=== PATIENT | male | born 1980 | race Asian ===

== ENCOUNTER 2016-08-23 00:53 | Emergency (ER) | payer OTHER, MEDICAID ==
[~2016-08-23] VITALS: Ht 172.7 cm; Wt 86.4 kg
[~2016-08-23 00:53] MED LIST: ALBU8.5H IH
[2016-08-23 01:21] LABS: BASOPHILS # (AUTO) 0.03 K/uL (0.00-0.20); BASOPHILS % (AUTO) 0.3 % (0.0-2.0); EOSINOPHILS # (AUTO) 0.55 K/uL (0.00-0.70); EOSINOPHILS % (AUTO) 4.96 % (1.0-6.0); HEMATOCRIT 48.5 % (41-53); HEMOGLOBIN 16.7 g/dL (13.5-17.5); LYMPHOCYTES # (AUTO) 2.6 K/uL (1.0-4.8); LYMPHOCYTES % (AUTO) 23.5 % (22.0-44.0); MEAN CORPUSCULAR HGB CONC 34.4 G/dL (31.0-37.0); MEAN CORPUSCULAR VOLUME 90 fL (80-100); MONOCYTES # (AUTO) 0.6 K/uL (0.1-1.0); MONOCYTES % (AUTO) 5.6 % (2.0-9.0); NEUTROPHILS # (AUTO) 7.3 K/uL (1.8-7.7); NEUTROPHILS % (AUTO) 65.7 % (40.0-70.0); PLATELET COUNT (AUTO) 257 K/uL (150-450); RED BLOOD CELL COUNT(AUTO) 5.38 MIL/uL (4.50-5.90); RED CELL DISTRIBUTION WIDTH 13.5 % (11.5-14.5); WHITE BLOOD COUNT (AUTO) 11.1 K/uL (4.5-11.0)
[2016-08-23 01:35] LABS: ANION GAP 3 mmol/L (8-16); CALCIUM, TOTAL 8.8 mg/dL (8.8-10.5); CARBON DIOXIDE 32 mmol/L (22-29); CHLORIDE 102 mmol/L (98-107); CREATININE 1.13 mg/dL (0.60-1.30); GLOMERULAR FILTR. RATE CALC > 60 mL/min (>60); POTASSIUM 4.3 mmol/L (3.5-5.1); SODIUM SERUM 137 mmol/L (136-145); UREA NITROGEN, BLOOD 14 mg/dL (7-18)
[2016-08-23 01:40] LABS: PROTHROMBIN TIME 10.6 SEC (9.4-11.6)
[2016-08-23 01:59] LABS: ALANINE AMINOTRANSFERASE 30 U/L (12-78); ALBUMIN 3.7 g/dL (3.4-5.0); ASPARTATE AMINOTRANSFERASE 18 U/L (15-37); BILIRUBIN,TOTAL 0.4 mg/dL (0.1-1.0); CREATINE KINASE MB 1.4 ng/mL (0-5); CREATINE KINASE, TOTAL 254 U/L (39-308); TOTAL PROTEIN, SERUM 7.7 g/dL (6.4-8.2)
[2016-08-23 03:07] LABS: APPEARANCE,URINE CLEAR (CLEAR); GLUCOSE, URINE (UA) 500 mg/dL (NEGATIVE); KETONES,URINE NEGATIVE (NEGATIVE); LEUKOCYTE ESTERASE ,URINE SMALL (NEGATIVE); OCCULT BLOOD,URINE SMALL (NEGATIVE); PH,URINE 5.5 (5.0-8.0); PROTEIN,URINE NEGATIVE (NEGATIVE)
[2016-08-23 03:11] LABS: ADD UA MICROSCOPIC YES
[2016-08-23 03:18] LABS: SQUAMOUS EPITHELIAL CELL,UR Few /LPF (None Seen)
[2016-08-23] MEDS: NAPROXEN 250 MG TABLET PO ONE (03:55)
[2016-08-23 04:02] VITALS: BP 124/89
== END 2016-08-23 04:03 | disposition home or self-care (01) ==
LOC: EMS 00:54
DX: R07.81 Pleurodynia (principal); J45.909 Unspecified asthma, uncomplicated; F17.210 Nicotine dependence, cigarettes, uncomplicated
CPT/HCPCS: 87086; 93005; 99285

== ENCOUNTER 2017-10-04 23:18 | Emergency (ER) | payer OTHER ==
[~2017-10-04] VITALS: Ht 172.7 cm; Wt 100.0 kg
[~2017-10-04 23:18] MED LIST changes: -ALBU8.5H IH; +ALBU8.5H8 IH
[2017-10-04 23:50] LABS: BASOPHILS % (AUTO) 0.6 % (0.0-2.0); EOSINOPHILS % (AUTO) 3.7 % (1.0-6.0); HEMATOCRIT 50.2 % (41-53); HEMOGLOBIN 17.1 g/dL (13.5-17.5); LYMPHOCYTES % (AUTO) 22.2 % (22.0-44.0); MEAN CORPUSCULAR HEMOGLOBIN 30.9 pg (26.0-34.0); MEAN CORPUSCULAR HGB CONC 34.1 G/dL (31.0-37.0); MEAN CORPUSCULAR VOLUME 91 fL (80-100); MONOCYTES # (AUTO) 0.7 K/uL (0.1-1.0); MONOCYTES % (AUTO) 7.6 % (2.0-9.0); NEUTROPHILS # (AUTO) 6.1 K/uL (1.8-7.7); NEUTROPHILS % (AUTO) 65.9 % (40.0-70.0); PLATELET COUNT (AUTO) 255 K/uL (150-450); RED BLOOD CELL COUNT(AUTO) 5.54 MIL/uL (4.50-5.90); RED CELL DISTRIBUTION WIDTH 13.8 % (11.5-14.5)
[2017-10-05] LABS: ANION GAP 6 mmol/L (8-16); CARBON DIOXIDE 27 mmol/L (22-29); CHLORIDE 102 mmol/L (98-107); CREATININE 0.99 mg/dL (0.60-1.30); GLOMERULAR FILTR. RATE CALC > 60 mL/min (>60); GLUCOSE,RANDOM 201 mg/dL (70-110); POTASSIUM 3.5 mmol/L (3.5-5.1); SODIUM SERUM 135 mmol/L (136-145); UREA NITROGEN, BLOOD 12 mg/dL (7-18)
[2017-10-05 00:06] LABS: ALANINE AMINOTRANSFERASE 38 U/L (12-78); ALBUMIN 3.8 g/dL (3.4-5.0); ALKALINE PHOSPHATASE 116 U/L (46-116); ASPARTATE AMINOTRANSFERASE 21 U/L (15-37); BILIRUBIN,TOTAL 0.4 mg/dL (0.1-1.0); TOTAL PROTEIN, SERUM 7.9 g/dL (6.4-8.2)
[2017-10-05 00:30] VITALS: BP 116/75
== END 2017-10-05 00:47 | disposition home or self-care (01) ==
LOC: EMS 23:18
DX: R07.89 Other chest pain (principal); J45.909 Unspecified asthma, uncomplicated; Z87.891 Personal history of nicotine dependence
CPT/HCPCS: 93005; 99285

== ENCOUNTER 2019-09-06 03:45 | Emergency (ER) | payer OTHER ==
[~2019-09-06] VITALS: Ht 172.7 cm; Wt 91.8 kg
[2019-09-06] MEDS ORDERED: ALBUTEROL SULFATE HFA 90 MCG/PUFF 8 GM INHALER IH ONE (05:00)
[2019-09-06 05:19] VITALS: BP 125/77
== END 2019-09-06 05:46 | disposition home or self-care (01) ==
LOC: EMS 03:45
DX: F41.9 Anxiety disorder, unspecified (principal); J45.909 Unspecified asthma, uncomplicated; Z79.899 Other long term (current) drug therapy; Z87.891 Personal history of nicotine dependence
CPT/HCPCS: 94640; J3535

== ENCOUNTER 2019-09-18 02:48 | Emergency (ER) | payer OTHER ==
[~2019-09-18] VITALS: Ht 172.7 cm; Wt 93.6 kg
[2019-09-18] MEDS ORDERED: HYDR-1475 PO (02:53)
[2019-09-18] MEDS ORDERED: AMLO5TAB9 PO (02:53)
[2019-09-18 03:15] VITALS: BP 134/78
[2019-09-18] MEDS ORDERED: LORazepam 2 MG/ML VIAL IVP ONE (03:30)
[2019-09-18] MEDS ORDERED: LORazepam 1 MG TABLET PO ONE (03:45)
== END 2019-09-18 03:53 | disposition home or self-care (01) ==
LOC: EMS 02:48
DX: F41.9 Anxiety disorder, unspecified (principal); I10 Essential (primary) hypertension; J45.909 Unspecified asthma, uncomplicated; Z87.891 Personal history of nicotine dependence; Z79.899 Other long term (current) drug therapy
CPT/HCPCS: J2060

== ENCOUNTER 2023-12-19 11:30 | Emergency (ER) | payer OTHER ==
[~2023-12-19] VITALS: Ht 172.7 cm; Wt 77.3 kg
[~2023-12-19 11:30] MED LIST changes: +AMLO-257 PO; +HYDR25TA2 PO
[2023-12-19 11:57] VITALS: PULSE 90; RESP 20; O2SAT 100
[2023-12-19] MEDS ORDERED: ALBU18HF12 IH (12:30)
[2023-12-19] MEDS ORDERED: MONT-40 PO (12:30)
[2023-12-19 12:38] LABS: COVID AG,FIA SOURCE NASAL SWAB
[2023-12-19 12:45] VITALS: PULSE 91; RESP 20; O2SAT 98
[2023-12-19] MEDS: ALBUTEROL SULFATE 2.5 MG/0.5 ML NEB SOLUTION NEB ONE (12:47)
[2023-12-19] MEDS: IPRATROPIUM BROMIDE 0.5 MG/2.5 ML NEB SOLUTION NEB ONE (12:47)
[2023-12-19 12:57] VITALS: PULSE 90; RESP 20; O2SAT 100
[2023-12-19 13:21] LABS: SARS-COV2 (COVID) ANTIGEN,FIA Positive (Negative)
[2023-12-19 14:14] LABS: BASOPHILS % (AUTO) 0.6 % (0.0-2.0); EOSINOPHILS % (AUTO) 6.7 % (1.0-6.0); HEMATOCRIT 50.2 % (41-53); HEMOGLOBIN 16.9 g/dL (13.5-17.5); LYMPHOCYTES # (AUTO) 1.1 K/uL (1.0-4.8); LYMPHOCYTES % (AUTO) 12.4 % (22.0-44.0); MEAN CORPUSCULAR HEMOGLOBIN 31.8 pg (26.0-34.0); MEAN CORPUSCULAR HGB CONC 33.6 G/dL (31.0-37.0); MEAN CORPUSCULAR VOLUME 95 fL (80-100); MONOCYTES # (AUTO) 0.9 K/uL (0.1-1.0); MONOCYTES % (AUTO) 9.8 % (2.0-9.0); NEUTROPHILS # (AUTO) 6.5 K/uL (1.8-7.7); NEUTROPHILS % (AUTO) 70.5 % (40.0-70.0); PLATELET COUNT (AUTO) 187 K/uL (150-450); WHITE BLOOD COUNT (AUTO) 9.3 K/uL (4.5-11.0)
[2023-12-19 14:30] LABS: ANION GAP 3 mmol/L (8-16); CALCIUM, TOTAL 9.5 mg/dL (8.8-10.5); CARBON DIOXIDE 32 mmol/L (22-29); CHLORIDE 100 mmol/L (98-107); GLOMERULAR FILTR. RATE CALC > 60 mL/min (>60); GLUCOSE,RANDOM 238 mg/dL (70-110); POTASSIUM 5.2 mmol/L (3.5-5.1); SODIUM SERUM 135 mmol/L (136-145); UREA NITROGEN, BLOOD 13 mg/dL (7-18)
[2023-12-19 14:36] LABS: ALANINE AMINOTRANSFERASE 36 U/L (12-78); ALBUMIN 3.9 g/dL (3.4-5.0); ALKALINE PHOSPHATASE 117 U/L (46-116); ASPARTATE AMINOTRANSFERASE 25 U/L (15-37); BILIRUBIN,TOTAL 0.5 mg/dL (0.1-1.0); TOTAL PROTEIN, SERUM 8.4 g/dL (6.4-8.2)
[2023-12-19 15:08] VITALS: BP 106/66; PULSE 92; RESP 16; TEMP 98.2
[2023-12-19] MEDS ORDERED: ALBU2.5V39 NEB ×2 (15:10→17:30)
[2023-12-19] MEDS ORDERED: NIRM1TAB10 PO ×2 (15:10→17:30)
== END 2023-12-19 15:42 | disposition home or self-care (01) ==
LOC: EMS 11:30
DX: U07.1 COVID-19 (principal); J45.901 Unspecified asthma with (acute) exacerbation; I10 Essential (primary) hypertension; F41.9 Anxiety disorder, unspecified; Z87.891 Personal history of nicotine dependence
CPT/HCPCS: 71045; 80053; 85025; 94640; 99284; 36415-L1; 36415-TC; J7613

== ENCOUNTER 2024-04-18 13:47 | Emergency (ER) | payer OTHER ==
[~2024-04-18] VITALS: Ht 172.7 cm; Wt 86.4 kg
[~2024-04-18 13:47] MED LIST changes: +ALBU18HF12 IH; +ALBU2.5V39 NEB; -ALBU8.5H8 IH; +MONT-40 PO; +NIRM1TAB10 PO
[2024-04-18 13:54] VITALS: TEMP 98.3
[2024-04-18] MEDS: ACETAMINOPHEN 500 MG TABLET PO ONE (14:51)
[2024-04-18] MEDS: GuaiFENesin/D-METHORPHAN [SUGAR-FREE] 200-20MG/10 ML SYRUP UDCUP PO ONE (14:51)
[2024-04-18] MEDS: PredniSONE 20 MG TABLET PO ONE (14:51)
[2024-04-18 15:07] LABS: COVID AG,FIA SOURCE NASAL SWAB
[2024-04-18] MEDS: IPRATROPIUM BROMIDE 0.5 MG/2.5 ML NEB SOLUTION NEB ONE (15:08)
[2024-04-18] MEDS: ALBUTEROL SULFATE 2.5 MG/0.5 ML NEB SOLUTION NEB ONE (15:08)
[2024-04-18 15:16] VITALS: PULSE 73; RESP 20; O2SAT 95
[2024-04-18 15:25] VITALS: PULSE 81; RESP 17; O2SAT 99
[2024-04-18 15:36] LABS: SARS-COV2 (COVID) ANTIGEN,FIA Negative (Negative)
[2024-04-18 15:37] LABS: INFLUENZA TYPE A NEGATIVE FOR TYPE A (NEGATIVE); INFLUENZA TYPE B NEGATIVE FOR TYPE B (NEGATIVE)
[2024-04-18] MEDS ORDERED: ALBU2.5V39 NEB (16:41)
[2024-04-18] MEDS ORDERED: GUAIFDM PO (16:41)
[2024-04-18] MEDS ORDERED: PRED-554 PO (16:41)
[2024-04-18 17:12] VITALS: BP 122/65; PULSE 77; RESP 17; O2SAT 99
== END 2024-04-18 17:39 | disposition home or self-care (01) ==
LOC: EMS 13:47
DX: J45.909 Unspecified asthma, uncomplicated (principal); J06.9 Acute upper respiratory infection, unspecified; F41.9 Anxiety disorder, unspecified; I10 Essential (primary) hypertension; Z87.891 Personal history of nicotine dependence; Z20.822 Contact with and (suspected) exposure to COVID-19
CPT/HCPCS: 99284; 71045; 87426; 87804; 94640; J7512; J7613

== ENCOUNTER 2024-11-12 10:11 | Emergency (ER) | payer OTHER ==
[~2024-11-12] VITALS: Ht 172.7 cm; Wt 87.3 kg
[~2024-11-12 10:11] MED LIST changes: +GUAIFDM PO; +PRED-554 PO
[2024-11-12 10:26] VITALS: BP 111/56; TEMP 98.2
[2024-11-12 10:28] LABS: COVID AG,FIA SOURCE NASAL SWAB
[2024-11-12 11:03] LABS: INFLUENZA TYPE A NEGATIVE FOR TYPE A (NEGATIVE); INFLUENZA TYPE B NEGATIVE FOR TYPE B (NEGATIVE); SARS-COV2 (COVID) ANTIGEN,FIA Negative (Negative)
[2024-11-12] MEDS: PredniSONE 20 MG TABLET PO ONE (11:06)
[2024-11-12] MEDS: ALBUTEROL SULFATE 2.5 MG/0.5 ML NEB SOLUTION NEB ONE (11:09)
[2024-11-12] MEDS: IPRATROPIUM BROMIDE 0.5 MG/2.5 ML NEB SOLUTION NEB ONE (11:09)
[2024-11-12 11:11] VITALS: PULSE 70; RESP 22; O2SAT 98
[2024-11-12 11:25] VITALS: PULSE 75; RESP 20; O2SAT 100
[2024-11-12] MEDS ORDERED: PRED-554 PO (12:51)
[2024-11-12] MEDS ORDERED: ALBU18HF12 IH (12:51)
[2024-11-12] MEDS ORDERED: FLUT1BLS18 IH (12:51)
== END 2024-11-12 13:07 | disposition home or self-care (01) ==
LOC: EMS 10:14
DX: J45.901 Unspecified asthma with (acute) exacerbation (principal); I10 Essential (primary) hypertension; F32.A Depression, unspecified; Z20.822 Contact with and (suspected) exposure to COVID-19; Z79.899 Other long term (current) drug therapy; Z79.51 Long term (current) use of inhaled steroids; Z87.891 Personal history of nicotine dependence; Z72.89 Other problems related to lifestyle
CPT/HCPCS: 99283; 87426; 87804; 94640; J7512